=== PATIENT | female | born 1980 | race Caucasian/White ===

== ENCOUNTER 2021-11-15 13:36 | Emergency (ER) | payer OTHER, MEDICAID, SELFPAY ==
[2021-11-15 13:48] VITALS: BP 136/68; PULSE 85; RESP 16; TEMP 36.6; O2SAT 95; BMI 39.9
--- NOTE | 2021-11-15 13:52 | W.ED.WOUNDLC ---
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 Tetanus is up-to-date. Onset (ago): hour(s) Extremity Location: Left: hand Place: home Patient tetanus UTD: Yes Context: accidental Associated symptoms: Reports no associated symptoms Review of Systems Musc: Reports: extremity pain (L hand) Skin/Breast: Reports: other (laceration L hand) Neuro: Denies: numbness in extremities or sensory changes Physical Exam Const: COMMON NORMALS: no acute distress, no limitations and alert Extremity: GENERAL: Yes normal exam except as noted LEFT UPPER EXTREMITY: Yes hand & digits (see below) OTHER: small 1.25cm laceration to dorsal 2nd MCP region; full ROM against resistance in all whaley; bleeding controlled; normal sensory; normal cap refill Neuro: COMMON NORMALS: moves all extremities, no focal motor deficits and no sensory deficits noted SENSORIUM/ORIENTATION: Yes alert Skin: NARRATIVE SKIN EXAM: see extremity assessment for pertinent skin findings Procedures Laceration Laceration 1: Site: hand Side (If applicable): left Size (cm): 1.25 Depth: simple, single layer Local Anesthetic: lidocaine 1% and with epi Amount of anesthesia used (mL): 1.0 Pre-repair: wound explored and irrigated extensively Skin layer closed with: nylon Size (cm): 4-0 Number of sutures: 3 Technique: simple, interrupted Course Vital Signs: Vital signs: Vital Signs Temperature 97.8 F 11/15/21 13:48 Pulse Rate 85 11/15/21 13:48 Respiratory Rate 16 11/15/21 13:48 Blood Pressure 136/68 11/15/21 13:48 Pulse Oximetry 95 11/15/21 13:48 MDM - Wound/Laceration Imaging Data^: XR L hand: Radiologist's impression: [address] [address] XRay Report Signed Patient: Toya Small Unit #: [id number] : 1980 Age/Sex: 41 / F ADM Date: 11/15/21 Loc: ER Room/Bed: Attending Dr: Ordering Provider/Ordering MD: Pat Macdonald Date of Service: 11/15/21 Procedure(s): XR hand LT min 3V* [id number] Accession Number(s): [id number] Report Number: [id number] PROCEDURE INFORMATION: Exam: XR Left Hand Exam date and time: 11/15/2021 1:54 PM Age: 41 years old Clinical indication: Injury or trauma; Other: Cut hand with saw; Injury details: Patient is a 41-year-old female presents to ED today for evaluation of a 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 ; Additional info: Trauma/laceration TECHNIQUE: Imaging protocol: XR Left hand. Views: 3 or more views. COMPARISON: No relevant prior studies available. FINDINGS: Bones/joints: Osseous structures are intact. Negative for fracture. Joint spaces are preserved. Soft tissues: Bandaging with wound along the palmar aspect of the hand. XR/XR hand LT min 3V* 30700 IMPRESSION: No acute osseous abnormalities of the hand. Dictated By: John Saenz DO Signed By: John Saenz DO Signed Date/Time: 11/15/21 1448 DD/ 1354 Discharge Plan Discharge Patient Disposition: Home Clinical Impression: Laceration of hand, left Qualifiers: Encounter type: initial encounter Foreign body presence: without foreign body Qualified Code(s): S61.412A - Laceration without foreign body of left hand, initial encounter Condition: Stable Discharge Orders: Discharge ED (Routine); Ordered 11/15/21 Ordered By: Pat Macdonald Patient Instructions: Care For Your Stitches (ED), Laceration (ED) Activity Restrictions/Additional Instructions: Keep wound/laceration clean with warm soap and water twice daily. Monitor for signs of infection such as redness, swelling, increased pain, or drainage. Please seek medical re-evaluation if these occur. If you received sutures today these will need to be removed (unless you were told by the provider that they are absorbable). The provider should have discussed with you the length of time until removal-7 DAYS. You may return to the emergency department for this service. If your wound was closed with Steri-Strips or glue/adhesive these will fall off within the next week or so. Coding Level of Care Code ED Regional Operations Manager for [facility] Exam Expanded Problem Focused
== END 2021-11-15 14:58 | disposition home or self-care (01) ==
PROVIDERS: Emergency Provider Physician Assistant
DX: S61.412A Laceration without foreign body of left hand, initial encounter (principal); W27.0XXA Contact with workbench tool, initial encounter
CPT/HCPCS: 12001; 73130; 99282

== ENCOUNTER 2022-06-09 06:00 | Outpatient (RCR) | payer MEDICAID, SELFPAY | END 2022-06-25 23:59 | disposition home or self-care (01) | LOC: SPT 06:00 | PROVIDERS: Referring Provider Family Medicine; Visit Provider Family Medicine | DX: M54.50 Low back pain, unspecified (principal); G89.29 Other chronic pain | CPT/HCPCS: 97110; 97162 ==

== ENCOUNTER 2022-06-26 06:00 | Outpatient (RCR) | payer MEDICAID, SELFPAY | END 2022-07-26 23:59 | disposition home or self-care (01) | LOC: SPT 06:00 | PROVIDERS: PCP Family Medicine; Referring Provider Family Medicine; Visit Provider Family Medicine | DX: M54.50 Low back pain, unspecified (principal); G89.29 Other chronic pain | CPT/HCPCS: 97110 ==

== ENCOUNTER → 2022-07-03 09:29 | Outpatient (BNVA) | payer MEDICAID, SELFPAY | PROVIDERS: PCP Family Medicine; Visit Provider Family Medicine | DX: I10 Essential (primary) hypertension (principal); E11.9 Type 2 diabetes mellitus without complications; K21.9 Gastro-esophageal reflux disease without esophagitis; G43.909 Migraine, unspecified, not intractable, without status migrainosus | CPT/HCPCS: 80053; 80061; 82043; 83036; 85025 ==

== ENCOUNTER 2022-07-13 13:08 | Outpatient (CLI) | payer MEDICAID, SELFPAY ==
--- NOTE | 2022-07-13 13:15 | MM_ITS ---
WS: [id number] BILATERAL 3D TOMOSYNTHESIS DIGITAL SCREENING MAMMOGRAPHY WITH CAD CLINICAL INFORMATION: screening mammogram HISTORY: Screening mammogram. No current complaints. COMPARISON: None. TECHNIQUE: Bilateral CC and MLO views. FINDINGS: Scattered fibroglandular densities bilaterally. Slightly spiculated 12 mm asymmetric density upper ou ter RIGHT breast. Recommend RIGHT breast diagnostic mammography with spot compression views and ultra sound in further evaluation LEFT breast is unremarkable. MM/[place] [id number] IMPRESSION: BI-RADS: 0-Incomplete: Need additional imaging evaluation FOLLOW UP: Need Additional Imaging Recommend RIGHT breast diagnostic mammography with spot compression views and u ltrasound.
== END 2022-07-13 13:09 | disposition home or self-care (01) ==
LOC: RAD 13:08
PROVIDERS: PCP Family Medicine; Visit Provider Family Medicine
DX: Z12.31 Encounter for screening mammogram for malignant neoplasm of breast (principal)
CPT/HCPCS: 77063; 77067

== ENCOUNTER 2022-08-08 08:19 | Outpatient (CLI) | payer MEDICAID, SELFPAY ==
--- NOTE | 2022-08-08 08:25 | MM_ITS ---
WS: [id number] RIGHT 3D TOMOSYNTHESIS DIGITAL MAMMOGRAPHY WITH CAD CLINICAL INFORMATION: right breast mass COMPARISON: None. TECHNIQUE: 3 views of the right breast were obtained. FINDINGS: Scattered fibroglandular densities of the right breast. Again seen is the slightly irregular 12 mm as ymmetric density upper outer RIGHT breast. This partially compresses out on the spot compression MLO and ML views likely due to dense overlapping tissue. Ultrasound is described below. ULTRASOUND BREAST RIGHT TECHNIQUE: Ultrasound right breast focused area of concern. CLINICAL INFORMATION: right breast mass COMPARISON: None. FINDINGS: Ultrasound RIGHT breast 9 to 1:00 position. Dense Parenchymal tissue at the 10 and 11:00 position. No visualized cystic or solid lesions. No suspicious lesions to target for biopsy. Benign-appearing dense parenchymal tissue at the 10 to 11:00 position which likely corresponds with t he mammographic findings. This is probably benign but Considering appearance on mammography, Recommen d 6 month follow-up to confirm stability. MM/[place] [id number] IMPRESSION: BI-RADS: 3-Probably Benign FOLLOW UP: 6 Month Follow-up This is probably benign and recommend 6 month follow-up RIGHT diagnostic mammog luis fernando and ultrasound to confirm stability.
== END 2022-08-08 08:20 | disposition home or self-care (01) ==
LOC: RAD 08:22
PROVIDERS: PCP Family Medicine; Visit Provider Family Medicine
DX: N63.11 Unspecified lump in the right breast, upper outer quadrant (principal)
CPT/HCPCS: 76642; 77061

== ENCOUNTER → 2022-10-12 14:11 | Outpatient (BNVA) | payer MEDICAID, SELFPAY | PROVIDERS: PCP Family Medicine; Visit Provider Family Medicine | DX: E11.9 Type 2 diabetes mellitus without complications (principal); E55.9 Vitamin D deficiency, unspecified; I10 Essential (primary) hypertension | CPT/HCPCS: 80053; 82306; 83036; 85025 ==

== ENCOUNTER 2022-12-19 08:03 | Outpatient (CLI) | payer MEDICAID, SELFPAY ==
--- NOTE | 2022-12-19 08:00 | US_ITS ---
WS: [id number] RIGHT UPPER QUADRANT ULTRASOUND HISTORY: elevated LFT COMPARISON: None available. Liver: 15.6 cm in length. Normal size liver. Very mild coarsened echotexture from hepatic steatosis. No mass. The entire liver is not visualized due to attenuation. No bile duct dilatation. Portal Vein: Normal hepatopetal flow with monophasic waveform. Gallbladder: Status post cholecystectomy. CBD: 0.4 cm Pancreas: Partially visualized. The head and tail are not visualized. The body is normal. Right kidney: 11.9 cm in length. Normal size and echogenicity. No hydronephrosis or mass. Aorta and IVC: Unremarkable abdominal aorta and IVC. No ascites. US/US liver [id number] IMPRESSION: 1. Prior cholecystectomy. 2. Hepatic steatosis. The entire liver is not imaged due to attenuation.
== END 2022-12-19 08:04 | disposition home or self-care (01) ==
LOC: RAD 08:03
PROVIDERS: PCP Family Medicine; Visit Provider Family Medicine
DX: R79.89 Other specified abnormal findings of blood chemistry (principal); K76.0 Fatty (change of) liver, not elsewhere classified
CPT/HCPCS: 76705

== ENCOUNTER → 2023-01-29 08:59 | Outpatient (BNVA) | payer MEDICAID, SELFPAY | PROVIDERS: PCP Family Medicine; Visit Provider Family Medicine | DX: E55.9 Vitamin D deficiency, unspecified (principal); R53.83 Other fatigue | CPT/HCPCS: 82306; 82607; 84443 ==

== ENCOUNTER → 2023-05-14 10:38 | Outpatient (BNVA) | payer MEDICAID, SELFPAY | PROVIDERS: PCP Family Medicine; Visit Provider Family Medicine | DX: E11.9 Type 2 diabetes mellitus without complications (principal) | CPT/HCPCS: 80053; 83036 ==

== ENCOUNTER 2023-07-05 20:00 | Outpatient (CLI) | payer MEDICAID, SELFPAY | END 2023-07-05 20:01 | disposition home or self-care (01) | PROVIDERS: PCP Family Medicine; Visit Provider Family Medicine | DX: G47.33 Obstructive sleep apnea (adult) (pediatric) (principal) | CPT/HCPCS: 95810 ==

== ENCOUNTER → 2023-07-10 11:46 | Outpatient (BNVA) | payer MEDICAID, SELFPAY | PROVIDERS: PCP Family Medicine; Visit Provider Family Medicine | DX: R25.2 Cramp and spasm (principal) | CPT/HCPCS: 80048; 82550; 83735; 85651; 86140 ==

== ENCOUNTER → 2023-08-13 08:24 | Outpatient (BNVA) | payer MEDICAID, SELFPAY | PROVIDERS: PCP Family Medicine; Visit Provider Family Medicine | DX: R05.9 Cough, unspecified (principal); R50.9 Fever, unspecified; E11.9 Type 2 diabetes mellitus without complications; F90.0 Attention-deficit hyperactivity disorder, predominantly inattentive type | CPT/HCPCS: 80053; 83036; 87426 ==

== ENCOUNTER 2023-08-23 09:34 | Day surgery (SDC) | payer MEDICAID, SELFPAY ==
[2023-08-21 11:44] VITALS: BMI 39.5
[2023-08-23] MEDS: sodium chloride 0.9% 1,000 ML 30 ML IV (10:03)
--- NOTE | 2023-08-23 10:04 | W.PM.OPSFHP ---
Same Day Surgery H&P Indication for Procedure/HPI DATE OF PROCEDURE: August 23, 2023 CHIEF COMPLAINT/INDICATIONFOR SURGICAL PROCEDURE: GERD PREOP DIAGNOSIS: GERD PLANNED PROCEDURE: Operation Date: 08/23/23 10:50 Proposed Procedures p EGD 63129,K21.9(Not Applicable) - Nicolás Kasper MD Medications/Allergies* Home Medications Medication Instructions Recorded Confirmed Type gabapentin 300 mg capsule 300 mg PO TID PRN Pain 05/11/22 08/23/23 History cetirizine 10 mg tablet 10 mg PO DAILY 08/21/23 08/21/23 History cholecalciferol (vitamin D3) 1,250 5,000 unit PO DAILY 08/21/23 08/21/23 History mcg (50,000 unit) capsule cyclobenzaprine 10 mg tablet 10 mg PO DAILY PRN Muscle 08/21/23 08/23/23 History Spasticity lisinopril 20 mg tablet 20 mg PO DAILY 08/21/23 08/21/23 History metformin 500 mg tablet,extended 2,000 mg PO DAILY 08/21/23 08/21/23 History release 24 hr montelukast 10 mg tablet 10 mg PO DAILY 08/21/23 08/21/23 History propranolol 10 mg tablet 10 mg PO BID 08/21/23 08/21/23 History Allergies/Adverse Reactions Allergy/AdvReac Type Severity Reaction Status Date / Time No Known Allergies Allergy Verified 08/21/23 11:32 Current Medications: Generic Name Dose Route Start Last Admin Trade Name Freq PRN Reason Stop Dose Admin Sodium Chloride 1,000 mls @ 30 mls/hr 08/23/23 09:45 08/23/23 10:03 Sodium Chloride 0.9% IV 08/24/23 09:44 30 mls/hr .Q24H SHAHRAM Administration Pertinent History/Comorbid Conditions* Medical History (Updated 08/13/23 @ 08:05 by Bozena Marks DO) ADD (attention deficit disorder) Anxiety Benign essential HTN Chronic back pain GERD (gastroesophageal reflux disease) History of meningitis Migraines MANOLO (obstructive sleep apnea) Seasonal allergies Type 2 diabetes mellitus, without long-term current use of insulin Surgical History (Updated 05/11/22 @ 13:48 by Bozena Marks DO) History of back surgery At L5 History of cholecystectomy History of lithotripsy Family History (Updated 05/11/22 @ 13:33 by Beth West LPN) Diabetes Dementia Hyperlipidemia Hypertension Stroke Denies family history of CAD (coronary artery disease) Clotting disorder Psychiatric illness Chronic kidney disease (CKD) Suicide Anesthesia complication Bleeding disorder Family history of premature coronary artery disease Lung disease Cancer Social History Smoking and tobacco status: former smoker Second hand smoke exposure: No Alcohol intake: current Alcohol intake frequency: few times a month Substance/Drug Use: never Adopted: Yes (Biological mother and adoptive father) Caregiver/support person: No Lives independently: Yes Household members: family and other Housing: House Marital status: Number of children: 2 Number of grandchildren: 0 Pertinent Exam Findings alert, oriented x 3, clear to auscultation bilaterally, regular rate & rhythm and operative site marked Recommendations Surgery/Procedure today Coding Level of Care Code Acute Code for Chg Fwd Diagnoses
[2023-08-23 10:06] VITALS: BP 157/105; PULSE 86; RESP 18; TEMP 36.1; O2SAT 97
[2023-08-23 10:06] LABS: Glucose Point of Care 269 mg/dL (70-110)
--- NOTE | 2023-08-23 10:11 | ANES.PREANE2 ---
Pre-Anesthetic Assessment Height/Weight: Height 1.73 m Weight 117.934 kg Temp Pulse Resp BP Pulse Ox O2 Del Method 97.0 F L 86 18 157/105 97 Room Air 08/23/23 10:06 08/23/23 10:06 08/23/23 10:06 08/23/23 10:06 08/23/23 10:06 08/23/23 10:06 Preop Diagnosis: GERD Operation Date: 08/23/23 10:50 Proposed Procedures p EGD 41729,K21.9(Not Applicable) - Nicolás Kasper MD Familial anesthetic complications: none Was Beta Lluvia taken within 24 hours: N/A Was Clonidine taken within 24 hours: N/A Last intake: Intake Last Liquid Date 08/22/23 Last Liquid Time 23:45 Last Solid Date 08/22/23 Last Solid Time 23:00 Social No alcohol and No tobacco (quit 4 years ago) Exam alert and oriented x 3 Airway Submandibular: within normal limits Cervical ROM: within normal limits Mallampati: Class III Dentition: false (uppers. pt reports abscessed tooth on left bottom, reports no lose teeth.) Pulmonary None reported CV/HEM Hypertension None reported Hepatic None reported GI Gastroesophageal Reflux Disease Metabolic Diabetes Mellitus, Hyperlipidemia and Morbid Obesity [facility] None reported Neuropsych None reported Anesthetic Plan ASA status: 3 Anesthesia: Anesthesia Evaluation, General and MAC Risk of > 500 ml blood loss (7ml/kg in children): No Medications/Allergies Home Medications Medication Instructions Recorded Confirmed Last Taken Type gabapentin 300 mg capsule 300 mg PO TID PRN Pain 05/11/22 08/23/23 08/22/23 History pen needle, diabetic 32 gauge x #50 ea 07/10/22 08/13/23 Unknown Rx 5/32 (BD Ultra-Fine Estrella Pen Needle) clonazepam 0.5 mg tablet 0.5 mg PO BID PRN anxiety #30 tabs 10/10/22 08/23/23 Unknown Rx pantoprazole 40 mg tablet,delayed 40 mg PO BID #180 tabs 05/14/23 08/21/23 08/22/23 Rx release CPAP set to 6-16 with supplies #1 ea 07/09/23 08/13/23 Unknown Rx sucralfate 1 gram tablet (Carafate) 1 g PO BID 4 weeks #56 tabs 08/08/23/23 08/22/23 Rx flunisolide 25 mcg (0.025 %) nasal 1 spray intranasal BID #25 mL 08/03/23 08/23/23 08/22/23 Rx spray dextroamphetamine-amphetamine ER 30 mg PO QAM 30 days #30 caps 08/13/23 08/21/23 08/21/23 Rx 30 mg 24hr capsule,extend release (Adderall XR) liraglutide 0.6 mg/0.1 mL (18 mg/3 1.8 mg (0.3 mL) SUBCUT Q24H #9 mL 08/13/23 08/21/23 08/15/23 Rx mL) subcutaneous pen injector ([employer] 3-Catracho) sumatriptan succinate 50 mg tablet 50 mg PO Q2H PRN migraine headache 08/13/23 08/23/23 Unknown Rx #9 tabs cetirizine 10 mg tablet 10 mg PO DAILY 08/21/23 08/21/23 08/22/23 History cholecalciferol (vitamin D3) 1,250 5,000 unit PO DAILY 08/21/23 08/21/23 08/22/23 History mcg (50,000 unit) capsule cyclobenzaprine 10 mg tablet 10 mg PO DAILY PRN Muscle 08/21/23 08/23/23 08/22/23 History Spasticity lisinopril 20 mg tablet 20 mg PO DAILY 08/21/23 08/21/23 08/22/23 History metformin 500 mg tablet,extended 2,000 mg PO DAILY 08/21/23 08/21/23 08/22/23 History release 24 hr montelukast 10 mg tablet 10 mg PO DAILY 08/21/23 08/21/23 08/22/23 History propranolol 10 mg tablet 10 mg PO BID 08/21/23 08/21/23 08/22/23 History Allergies Allergy/AdvReac Type Severity Reaction Status Date / Time No Known Allergies Allergy Verified 08/21/23 11:32 Current Medications Generic Name Dose Route Start Last Admin Trade Name Freq PRN Reason Stop Dose Admin Sodium Chloride 1,000 mls @ 30 mls/hr 08/23/23 09:45 08/23/23 10:03 Sodium Chloride 0.9% IV 08/24/23 09:44 30 mls/hr .Q24H SHAHRAM Administration PFSH Anesthesia Medical History ADD (attention deficit disorder) Anxiety Benign essential HTN Chronic back pain GERD (gastroesophageal reflux disease) History of meningitis Migraines MANOLO (obstructive sleep apnea) Seasonal allergies Type 2 diabetes mellitus, without long-term current use of insulin Surgical History History of back surgery At L5 History of cholecystectomy History of lithotripsy Family History Other Dementia Diabetes Hyperlipidemia Hypertension Stroke Denies family history of CAD (coronary artery disease) Clotting disorder Psychiatric illness Chronic kidney disease (CKD) Suicide Anesthesia complication Bleeding disorder Family history of premature coronary artery disease Lung disease Cancer Social History Smoking and tobacco status: former smoker Second hand smoke exposure: No Alcohol intake: current Alcohol intake frequency: few times a month Substance/Drug Use: never Adopted: Yes (Biological mother and adoptive father) Caregiver/support person: No Lives independently: Yes Household members: family and other Housing: House Marital status: Number of children: 2 Number of grandchildren: 0 Data Anesthesia Cardiac Studies: No Data to Display
[2023-08-23 10:33] VITALS: BP 147/81; PULSE 95; RESP 18; TEMP 36.2; O2SAT 94
[2023-08-23 10:49] VITALS: BP 140/89; PULSE 85; RESP 16; O2SAT 97
[2023-08-23 11:50] LABS: OR HCG Qualitative Urine Negative (Negative)
== END 2023-08-23 11:00 | disposition home or self-care (01) ==
PROVIDERS: Anesthesiology; PCP Family Medicine; Visit Provider Surgery
PROC: 0DJ08ZZ Inspection of Upper Intestinal Tract, Via Natural or Artificial Opening Endoscopic (ICD-10-PCS; CPT 43235; principal; 2023-08-23 10:50)
DX: K21.9 Gastro-esophageal reflux disease without esophagitis (principal); K29.50 Unspecified chronic gastritis without bleeding; I10 Essential (primary) hypertension; G47.33 Obstructive sleep apnea (adult) (pediatric); E11.9 Type 2 diabetes mellitus without complications; Z87.891 Personal history of nicotine dependence; E66.01 Morbid (severe) obesity due to excess calories; Z68.39 Body mass index [BMI] 39.0-39.9, adult; Z79.84 Long term (current) use of oral hypoglycemic drugs
CPT/HCPCS: 36416; 43239; 81025; 82962; 84703; 88305; 88342; J2704; J7030

== ENCOUNTER → 2023-12-27 09:34 | Outpatient (BNVA) | payer MEDICAID, SELFPAY | PROVIDERS: PCP Family Medicine; Visit Provider Family Medicine | DX: E11.9 Type 2 diabetes mellitus without complications (principal) | CPT/HCPCS: 80053; 83036 ==

== ENCOUNTER 2024-04-17 11:46 | Outpatient (CLI) | payer MEDICAID, SELFPAY ==
--- NOTE | 2024-04-17 12:00 | MM_ITS ---
WS: [id number] BILATERAL 3D TOMOSYNTHESIS DIGITAL DIAGNOSTIC MAMMOGRAPHY WITH CAD CLINICAL INFORMATION: ABNORMAL MAMMOGRAM HISTORY: Follow-up RIGHT breast lesion. Patient missed prior 6-month follow-up. COMPARISON: 07/13/2022 TECHNIQUE: Bilateral CC, MLO, and ML views. FINDINGS: Scattered fibroglandular densities bilaterally. Again seen is the slightly irregular 12 mm focal asym metric density upper outer RIGHT breast. This is stable in appearance compared to 07/13/2022. Ultrasou nd is pending. LEFT breast is unremarkable and unchanged in appearance. ULTRASOUND BREAST RIGHT TECHNIQUE: Ultrasound right breast focused area of concern. CLINICAL INFORMATION: ABNORMAL MAMMOGRAM FINDINGS: Ultrasound RIGHT breast 9:00 to 1 o'clock position. No suspicious underlying cystic or solid lesions. Dense underlying parenchymal tissue. No suspicious lesions to target for biopsy. Recommend return to annual screen mammography. MM/[place] [id number] IMPRESSION: BI-RADS: 2-Benign FOLLOW UP: 1 Year Follow-up Recommend return to annual screening mammography.
--- NOTE | 2024-04-17 12:55 | US_ITS ---
WS: [id number] BILATERAL 3D TOMOSYNTHESIS DIGITAL DIAGNOSTIC MAMMOGRAPHY WITH CAD CLINICAL INFORMATION: ABNORMAL MAMMOGRAM HISTORY: Follow-up RIGHT breast lesion. Patient missed prior 6-month follow-up. COMPARISON: 07/13/2022 TECHNIQUE: Bilateral CC, MLO, and ML views. FINDINGS: Scattered fibroglandular densities bilaterally. Again seen is the slightly irregular 12 mm focal asym metric density upper outer RIGHT breast. This is stable in appearance compared to 07/13/2022. Ultrasou nd is pending. LEFT breast is unremarkable and unchanged in appearance. ULTRASOUND BREAST RIGHT TECHNIQUE: Ultrasound right breast focused area of concern. CLINICAL INFORMATION: ABNORMAL MAMMOGRAM FINDINGS: Ultrasound RIGHT breast 9:00 to 1 o'clock position. No suspicious underlying cystic or solid lesions. Dense underlying parenchymal tissue. No suspicious lesions to target for biopsy. Recommend return to annual screen mammography. US/US breast RT limited* [id number] IMPRESSION: BI-RADS: 2-Benign FOLLOW UP: 1 Year Follow-up Recommend return to annual screening mammography.
== END 2024-04-17 11:47 | disposition home or self-care (01) ==
LOC: RAD 11:46
PROVIDERS: PCP Family Medicine; Visit Provider Family Medicine
DX: R92.8 Other abnormal and inconclusive findings on diagnostic imaging of breast (principal); R92.323 Mammographic fibroglandular density, bilateral breasts; N64.89 Other specified disorders of breast
CPT/HCPCS: 76642; 77062; G0279

== ENCOUNTER 2024-06-09 08:05 | Outpatient (CLI) | payer MEDICAID, SELFPAY ==
[2024-06-09 09:09] LABS: Free T4 Free Thyroxine 1.05 ng/dL (0.82-1.77); Thyroid Stimulating Hormone 2.63 uIU/mL (0.27-4.20)
[2024-06-10 12:36] LABS: T3 Total 81 ng/dL (76-181)
== END 2024-06-09 08:06 | disposition home or self-care (01) ==
LOC: LAB 08:07
PROVIDERS: PCP Family Medicine; Visit Provider Internal Medicine
DX: E11.9 Type 2 diabetes mellitus without complications (principal); E78.5 Hyperlipidemia, unspecified; Z86.39 Personal history of other endocrine, nutritional and metabolic disease
CPT/HCPCS: 36415; 84439; 84443; 84480

== ENCOUNTER 2024-06-13 08:35 | Outpatient (CLI) | payer MEDICAID, SELFPAY | END 2024-06-13 08:36 | disposition home or self-care (01) | LOC: LAB 08:36 | PROVIDERS: PCP Family Medicine; Visit Provider Internal Medicine | DX: R79.89 Other specified abnormal findings of blood chemistry (principal) | CPT/HCPCS: 36415 ==

== ENCOUNTER 2024-06-17 08:22 | Outpatient (CLI) | payer MEDICAID, SELFPAY ==
[2024-06-17 09:15] LABS: Alanine Aminotransferase 35 U/L (0-33); Albumin Level 4.3 g/dL (3.5-5.2); Alkaline Phosphatase 95 U/L (35-105); Aspartate Amino Transferase 22 U/L (0-32); Blood Urea Nitrogen 15 mg/dL (6-20); Calcium 9.3 mg/dL (8.5-10.5); Carbon Dioxide 21 mmol/L (22-29); Chloride 100 mmol/L (98-107); Globulin 3.3 g/dL (1.3-4.6); Glomerular Filtration Rate 90.5 mL/min (90-130); Glucose 171 mg/dL (65-115); Osmolality Calculated 283 mOsm/kg (285-295); Sodium 134 mmol/L (136-145); Total Bilirubin 0.6 mg/dL (0.15-1.2); Total Protein 7.6 g/dL (6.6-8.7)
[2024-06-17 09:31] LABS: 25 Hydroxy Vitamin D 42 ng/mL (30-100)
[2024-06-17 10:26] LABS: Urine Creatinine 37 mg/dL (28-217)
[2024-06-17 10:39] LABS: Total Volume Urine 4100 ml
== END 2024-06-17 08:23 | disposition home or self-care (01) ==
LOC: LAB 08:23
PROVIDERS: PCP Family Medicine; Visit Provider Internal Medicine
DX: R79.89 Other specified abnormal findings of blood chemistry (principal); E11.9 Type 2 diabetes mellitus without complications; E78.5 Hyperlipidemia, unspecified; Z86.39 Personal history of other endocrine, nutritional and metabolic disease
CPT/HCPCS: 36415; 80053; 82306; 82384; 82530; 82570; 83835; 87624

== ENCOUNTER → 2024-09-08 09:09 | Outpatient (BNVA) | payer MEDICAID, SELFPAY | PROVIDERS: PCP Family Medicine; Visit Provider Family Medicine | DX: E11.9 Type 2 diabetes mellitus without complications (principal) | CPT/HCPCS: 80053; 80061; 82043; 83036 ==

== ENCOUNTER 2024-10-21 09:00 | Outpatient (CLI) | payer MEDICAID, SELFPAY ==
[2024-10-21 10:04] LABS: Alanine Aminotransferase 22 U/L (0-33); Albumin Level 3.9 g/dL (3.5-5.2); Alkaline Phosphatase 80 U/L (35-105); Aspartate Amino Transferase 17 U/L (0-32); Blood Urea Nitrogen 13 mg/dL (6-20); Calcium 9.5 mg/dL (8.5-10.5); Carbon Dioxide 20 mmol/L (22-29); Chloride 102 mmol/L (98-107); Chol HDL Ratio 6.33 mg/dL (0.0-4.40); Cholesterol 228 mg/dL (0-200); Globulin 2.5 g/dL (1.3-4.6); Glomerular Filtration Rate 108.1 mL/min (90-130); Glucose 181 mg/dL (65-115); HDL Cholesterol 36 mg/dL (60-100); LDL Cholesterol Calculated 150 mg/dL (50-129); LDL HDL Ratio 4.17 RATIO (0.00-3.22); Osmolality Calculated 283 mOsm/kg (285-295); Sodium 134 mmol/L (136-145); Total Bilirubin 0.4 mg/dL (0.15-1.2); Total Protein 6.4 g/dL (6.6-8.7); Triglycerides 210 mg/dL (0-150)
[2024-10-21 10:06] LABS: Anion Gap 16.3 (5-19); Potassium 4.3 mmol/L (3.5-5.1)
[2024-10-21 10:09] LABS: Estmated Average Glucose 163; Hemoglobin A1C 7.3 % (4.0-6.0)
[2024-10-21 10:09] LABS: Creatinine Urine, Random 46 mg/dL (28-217); Microalbum Creatinine Ratio Ur 22 mg/dL (0-20); Microalbumin Random Urine 1 ug/dL (0-20)
== END 2024-10-21 09:01 | disposition home or self-care (01) ==
LOC: LAB 09:02
PROVIDERS: PCP Family Medicine; Visit Provider Internal Medicine
DX: E11.9 Type 2 diabetes mellitus without complications (principal); E78.5 Hyperlipidemia, unspecified
CPT/HCPCS: 36415; 80053; 80061; 82044; 83036

== ENCOUNTER 2025-01-20 09:04 | Outpatient (CLI) | payer MEDICAID, SELFPAY ==
[2025-01-20 09:42] LABS: Estmated Average Glucose 137; Hemoglobin A1C 6.4 % (4.0-6.0)
[2025-01-20 09:49] LABS: Alanine Aminotransferase 27 U/L (0-33); Albumin Level 4.2 g/dL (3.5-5.2); Alkaline Phosphatase 102 U/L (35-105); Aspartate Amino Transferase 22 U/L (0-32); Blood Urea Nitrogen 16 mg/dL (6-20); Calcium 9.7 mg/dL (8.5-10.5); Carbon Dioxide 18 mmol/L (22-29); Chloride 102 mmol/L (98-107); Chol HDL Ratio 4.78 mg/dL (0.0-4.40); Cholesterol 172 mg/dL (0-200); Globulin 3.1 g/dL (1.3-4.6); Glomerular Filtration Rate 90.5 mL/min (90-130); Glucose 124 mg/dL (65-115); HDL Cholesterol 36 mg/dL (60-100); LDL Cholesterol Calculated 115 mg/dL (50-129); LDL HDL Ratio 3.19 RATIO (0.00-3.22); Osmolality Calculated 277 mOsm/kg (285-295); Sodium 132 mmol/L (136-145); Total Bilirubin 0.5 mg/dL (0.15-1.2); Total Protein 7.3 g/dL (6.6-8.7); Triglycerides 107 mg/dL (0-150)
[2025-01-20 09:51] LABS: Creatinine Urine, Random 60 mg/dL (28-217); Microalbum Creatinine Ratio Ur 17 mg/dL (0-20); Microalbumin Random Urine 1 ug/dL (0-20)
[2025-01-20 09:52] LABS: Anion Gap 16.6 (5-19); Potassium 4.6 mmol/L (3.5-5.1)
== END 2025-01-20 09:05 | disposition home or self-care (01) ==
LOC: LAB 09:05
PROVIDERS: PCP Family Medicine; Visit Provider Internal Medicine
DX: E11.9 Type 2 diabetes mellitus without complications (principal)
CPT/HCPCS: 36415; 80053; 80061; 82044; 83036

== ENCOUNTER 2025-08-13 10:39 | Outpatient (CLI) | payer MEDICAID, SELFPAY ==
[2025-08-13 12:44] LABS: Estmated Average Glucose 128; Hemoglobin A1C 6.1 % (4.0-6.0)
[2025-08-13 12:54] LABS: Creatinine Urine, Random 94 mg/dL (28-217); Microalbum Creatinine Ratio Ur 11 mg/dL (0-20)
[2025-08-13 13:00] LABS: Alanine Aminotransferase 50 U/L (0-33); Albumin Level 4.7 g/dL (3.5-5.2); Alkaline Phosphatase 102 U/L (35-105); Anion Gap 16.4 (5-19); Aspartate Amino Transferase 33 U/L (0-32); Blood Urea Nitrogen 11 mg/dL (6-20); Calcium 9.7 mg/dL (8.5-10.5); Carbon Dioxide 26 mmol/L (22-29); Chloride 100 mmol/L (98-107); Cholesterol 224 mg/dL (0-200); Globulin 3.5 g/dL (1.3-4.6); Glucose 119 mg/dL (65-115); HDL Cholesterol 47 mg/dL (60-100); Osmolality Calculated 287 mOsm/kg (285-295); Potassium 4.4 mmol/L (3.5-5.1); Sodium 138 mmol/L (136-145); Total Protein 8.2 g/dL (6.6-8.7); Triglycerides 157 mg/dL (0-150)
== END 2025-08-13 10:40 | disposition home or self-care (01) ==
LOC: LAB 10:40
PROVIDERS: PCP Family Medicine; Visit Provider Internal Medicine
DX: E11.9 Type 2 diabetes mellitus without complications (principal)
CPT/HCPCS: 36415; 80053; 80061; 82044; 83036